=== PATIENT | female | born 1960 | race Caucasian/White ===

== ENCOUNTER 2020-07-10 10:17 | Outpatient (CLI) | payer BC, SELFPAY ==
--- NOTE | ~2020-07-10 | US_ITS ---
EXAMINATION: US right upper quadrant EXAM DATE: 07/10/2020 11:01 INDICATION: R10.11 - Right upper quadrant pain . TECHNIQUE: Multiple grayscale and Doppler images of the abdomen right upper quadrant were obtained (b y a technologist who performed the scan) and subsequently reviewed. There is no prior study for ashlyn retana. FINDINGS: The pancreatic head and body are normal in appearance. The pancreatic tail is not visualized. The l iver has normal echogenicity and contour. There are no focal liver lesions identified. There is no evidence of intrahepatic biliary duct dilation. Portal venous flow was seen in the hepatopedal, nor mal direction and has normal Doppler waveform. No right-sided hydronephrosis. Common bile duct measures 3 mm, which is normal. The gallbladder is contracted, wall within normal th ickness limits given contracted state. No sonographic evidence of pericholecystic fluid. There is g allbladder adenomyomatosis. No cholelithiasis suspected Technologist performing exam reports patient did not demonstrate sonographic Adams's sign. Please note that this sign is less reliable in patien ts who have received pain medication. IMPRESSION: Gallbladder adenomyomatosis. Reviewed, dictated and finalized at location B. CAL TECHNOLOGIST
== END 2020-07-10 10:18 | disposition home or self-care (01) ==
PROVIDERS: PCP Internal Medicine; Visit Provider Physician Assistant
DX: R10.11 Right upper quadrant pain (principal)
CPT/HCPCS: 76705

== ENCOUNTER 2023-09-16 17:55 | Emergency (ER) | payer MEDICARE, SELFPAY ==
[2023-09-16 18:10] VITALS: BP 130/82; PULSE 80; RESP 16; TEMP 37.1; O2SAT 100
--- NOTE | 2023-09-16 19:00 | ED.SKABFB ---
HPI - Skin/Abscess/Foreign Bdy General Chief complaint: Skin/Abscess/Foreign Body Stated complaint: Rash Time Seen by Provider: 09/16/23 19:00 Source: patient Mode of arrival: ambulatory Limitations: no limitations History of Present Illness HPI narrative: 63-year-old female presents with complaint of rash to back of neck for the past 4-5 months. Reports getting progressively more itchy over the past several days with some tenderness. Has been applying [id number] psoriasis cream that she bought yesterday. Has not seen her primary care physician or a subsorter regarding rash. All systems reviewed and negative except as noted above. Related Data Allergies Allergy/AdvReac Type Severity Reaction Status Date / Time metronidazole Allergy Mild Nausea and Verified 09/16/23 18:09 Vomiting Review of Systems Review of Systems: CONSTITUTIONAL: Denies fever, chills, or sweats. EYES: Denies visual changes, redness, or discharge. ENT: Denies rhinorrhea, congestion, sore throat, or otalgia. CARDIOVASCULAR: Denies chest pain, palpitations, or edema. RESPIRATORY: Denies cough or dyspnea. GASTROINTESTINAL: Denies abdominal pain, nausea, vomiting, or diarrhea. GENITOURINARY: Denies dysuria or hematuria. SKIN: Reports rash to back of neck with itching. MUSCULOSKELETAL: Denies back pain, joint pain, or myalgia. NEUROLOGIC: Denies headache, numbness, or weakness. PSYCHIATRIC: Denies anxiety or depression. All other systems reviewed are negative, except as documented in HPI. PMFSH Social History Social History Smoking status: Current every day smoker Second hand tobacco smoke exposure: No Alcohol intake: current Substance use: unknown Lack of Transportation: No Lack of Food: Never True Current Housing: I Have Housing Concerned About Future Housing: No Difficulty Paying Gas/Electric Bills: No Difficulty Paying for Meds: No Currently Unemployed: YES Education: Bachelor's Degree Difficulty w/ Childcare or Family Care: No Comments At time of signature, agree with nursing past medical, surgical, social and family history. There is no relevant family history pertinent to the presenting complaint. Exam Narrative: GENERAL: This is a well-nourished, well-developed patient, in no apparent distress. HEAD: normocephalic, atraumatic. EYES: PERRL. Sclera clear/white. Vision is grossly intact. EARS: External ears normal NOSE: External nose normal NECK: Neck supple, non-tender without lymphadenopathy, masses or thyromegaly. CARDIOVASCULAR: Regular rate and rhythm without murmurs, gallops, or rubs. RESPIRATORY: Clear to auscultation. Breath sounds equal bilaterally. No wheezes, rales, or rhonchi. SKIN: warm, Dry, intact. Scaly, flaky rash to posterior aspect of neck and hairline with 2-3 erythematous open draining lesions concerning for staph infection. NEURO: awake, alert, and oriented to person, place and time. There were no obvious focal neurologic abnormalities. EXTREMITIES: No joint tenderness, effusion, or edema noted. Course Course Level of Care: Express Care Visit Vital Signs Vital signs: Vital Signs Temperature 37.1 C 09/16/23 18:10 Pulse Rate 80 09/16/23 18:10 Respiratory Rate 16 09/16/23 18:10 Blood Pressure 130/82 09/16/23 18:10 Pulse Oximetry 100 09/16/23 18:10 Oxygen Delivery Room Air 09/16/23 18:10 Temperature 37.1 C 09/16/23 18:10 Pulse Rate 80 09/16/23 18:10 Respiratory Rate 16 09/16/23 18:10 Blood Pressure 130/82 09/16/23 18:10 Pulse Oximetry 100 09/16/23 18:10 Oxygen Delivery Room Air 09/16/23 18:30 Reviewed MDM - Skin/Abscess/Foreign Bdy MDM Narrative Medical decision making narrative: Patient is aware of diagnosis, understands and agrees to treatment plan. Anticipatory guidance given. Patient agrees to follow-up as directed and is aware of reasons
== END 2023-09-16 19:30 | disposition home or self-care (01) ==
PROVIDERS: Emergency Provider Nurse Practitioner Family; PCP Internal Medicine
DX: R21 Rash and other nonspecific skin eruption (principal); F17.200 Nicotine dependence, unspecified, uncomplicated
CPT/HCPCS: 99213; G0463